=== PATIENT | female | born 1965 | race Caucasian/White ===

== ENCOUNTER 2018-10-31 23:36 | Emergency (ER) | payer BC ==
[~2018-10-31] VITALS: Ht 165.1 cm; Wt 104.5 kg
[2018-11-01] MEDS ORDERED: MICROZIDE12.5 MG PO (00:46)
[2018-11-01] MEDS ORDERED: MELOXICAM7.5 MG PO (00:47)
[2018-11-01] MEDS ORDERED: PX OMEPRAZOLE20 MG PO (00:48)
[2018-11-01] MEDS ORDERED: CITALOPRAM20 MG PO (00:49)
[2018-11-01] MEDS ORDERED: CLONAZEPAM1 MG PO (00:49)
[2018-11-01] MEDS ORDERED: KEFLEX500 M1 PO (01:05)
[2018-11-01] MEDS ORDERED: TYLENOL # 31 TA1 PO (01:05)
[2018-11-01 02:12] VITALS: BP 132/65
== END 2018-11-01 02:02 | disposition home or self-care (01) | DRG 563 ==
LOC: ED 23:36 → EDBD 23:47 → ED 11-01 02:02
PROC: 0HQHXZZ Repair Right Upper Leg Skin, External Approach (ICD-10-PCS; principal; 2018-11-01)
DX: S92.424A Nondisplaced fracture of distal phalanx of right great toe, initial encounter for closed fracture (principal); S71.111A Laceration without foreign body, right thigh, initial encounter; W01.119A Fall on same level from slipping, tripping and stumbling with subsequent striking against unspecified sharp object, initial encounter; Y93.01 Activity, walking, marching and hiking; Y92.009 Unspecified place in unspecified non-institutional (private) residence as the place of occurrence of the external cause

== ENCOUNTER 2018-11-05 21:04 | Emergency (ER) | payer BC ==
[~2018-11-05] VITALS: Ht 165.1 cm; Wt 110.0 kg
[~2018-11-05 21:04] MED LIST: CITALOPRAM20 MG PO; CLONAZEPAM1 MG PO; KEFLEX500 M1 PO; MELOXICAM7.5 MG PO; MICROZIDE12.5 MG PO; PX OMEPRAZOLE20 MG PO; TYLENOL # 31 TA1 PO
[2018-11-05 21:42] LABS: HEMATOCRIT 34.6 % (37.0-47.0); HEMOGLOBIN 11.4 g/dl (12.0-16.0); IMMATURE GRANULOCYTES 0.3 % (0.0-5.0); MEAN CELL VOLUME 86.7 fL CALC (80.0-100.0); MEAN CORPUSCULAR HGB 28.6 pG CALC (26.0-32.0); MEAN CORPUSCULAR HGB CONC 32.9 g/L CALC (32.0-36.0); NEUT# 9.64 thou/uL (2.00-7.15); RED BLOOD COUNT 3.99 mill/uL (4.20-5.60); RED CELL DISTRI WIDTH 14.1 % (11.5-15.5)
[2018-11-05 21:59] LABS: ALBUMIN 3.6 g/dL (3.2-5.0); BILIRUBIN, TOTAL 0.9 mg/dL (0.0-1.4); CREATININE 1.2 mg/dL (0.5-1.0); POTASSIUM 3.4 mmol/l (3.5-5.1); TOTAL PROTEIN 6.4 g/dL (6.3-8.2)
[2018-11-05] MEDS ORDERED: AMOX/K CLAV875 M1 PO (22:17)
[2018-11-05] MEDS ORDERED: NAPROSYN500 MG PO (22:17)
[2018-11-05] MEDS ORDERED: LORTAB 1010 MG PO (22:22)
[2018-11-05 22:38] VITALS: BP 101/65
== END 2018-11-05 22:38 | disposition home or self-care (01) | DRG 554 ==
LOC: ED 21:04
PROVIDERS: Emergency Medicine
DX: M17.12 Unilateral primary osteoarthritis, left knee (principal); L03.115 Cellulitis of right lower limb; S71.111A Laceration without foreign body, right thigh, initial encounter; I10 Essential (primary) hypertension; W19.XXXA Unspecified fall, initial encounter

== ENCOUNTER 2018-11-10 21:19 | Emergency (ER) | payer BC ==
[~2018-11-10] VITALS: Ht 165.1 cm; Wt 109.1 kg
[~2018-11-10 21:19] MED LIST changes: +AMOX/K CLAV875 M1 PO; +LORTAB 1010 MG PO; +NAPROSYN500 MG PO
[2018-11-10 23:58] LABS: HEMATOCRIT 36.7 % (37.0-47.0); HEMOGLOBIN 11.9 g/dl (12.0-16.0); IMMATURE GRANULOCYTES 3.5 % (0.0-5.0); MEAN CELL VOLUME 85.7 fL CALC (80.0-100.0); MEAN CORPUSCULAR HGB 27.8 pG CALC (26.0-32.0); MEAN CORPUSCULAR HGB CONC 32.4 g/L CALC (32.0-36.0); NEUT# 3.07 thou/uL (2.00-7.15); RED BLOOD COUNT 4.28 mill/uL (4.20-5.60); RED CELL DISTRI WIDTH 14.4 % (11.5-15.5)
[2018-11-11 00:10] LABS: ALBUMIN 3.3 g/dL (3.2-5.0); ALKALINE PHOSPHATASE 78 u/l (38-126); ANION GAP 12 (6-22 (CALC)); BILIRUBIN, TOTAL 1.4 mg/dL (0.0-1.4); BUN 18 mg/dL (7-17); BUN/CREATININE RATIO 18 (12-20 (CALC)); CARBON DIOXIDE 29 mmol/l (22-30); CHLORIDE 101 mmol/l (95-108); GFR 58 ML/MIN (>=60 (CALC)); GFR FOR AFR.AMER. > 60 ML/MIN (>=60 (CALC)); SGOT/AST 24 u/l (14-36); SODIUM 140 mmol/l (137-146); TOTAL PROTEIN 6.3 g/dL (6.3-8.2)
[2018-11-11] MEDS ORDERED: BACTRIM DS1 TAB PO (02:58)
[2018-11-11] MEDS ORDERED: IBUPROFEN600 MG PO (02:59)
[2018-11-11 03:03] VITALS: BP 114/62
== END 2018-11-11 03:14 | disposition home or self-care (01) | DRG 603 ==
LOC: ED 21:19
PROVIDERS: Emergency Medicine
DX: L03.115 Cellulitis of right lower limb (principal); S71.101A Unspecified open wound, right thigh, initial encounter; X58.XXXA Exposure to other specified factors, initial encounter
CPT/HCPCS: Q9967

== ENCOUNTER 2018-11-23 10:21 | Day surgery (SDC) | payer BC ==
[~2018-11-23 10:21] MED LIST changes: +B121000 MCG PO; +BACTRIM DS1 TAB PO; +CELEXA20 M1 PO; +CLINDAMYCIN300 M1 PO; +D32000 UNI1 PO; +ESCITALOPRAM OX20 MG PO; +IBUPROFEN600 MG PO; +L-THYROXINE PO; +MULTI VIT PO; +ROCEPHIN 500 M500 MG IJ; +TRAMADOL HCL50 MG PO; +XANAX0.5 MG PO; +ZOLPIDEM ER12.5 MG PO
[2018-11-23 13:55] VITALS: BP 122/66
== END 2018-11-23 13:50 | disposition home or self-care (01) | DRG 581 ==
LOC: ORM 10:21 → AMBSURG 12:00 → ORM 12:00 → PO 12:00 → ORM 13:50
PROVIDERS: ATTEND Surgery
PROC: 0J9L0ZZ Drainage of Right Upper Leg Subcutaneous Tissue and Fascia, Open Approach (ICD-10-PCS; principal; 2018-11-23)
DX: L02.415 Cutaneous abscess of right lower limb (principal); S70.11XA Contusion of right thigh, initial encounter; W19.XXXA Unspecified fall, initial encounter
CPT/HCPCS: J0131

== ENCOUNTER 2019-01-09 15:01 | Inpatient (IN) | payer BC ==
[~2019-01-09] VITALS: Ht 165.1 cm; Wt 106.1 kg
[2019-01-14] VITALS (25 sets, daily range): BP systolic 81–140; BP diastolic 44–87
--- NOTE | 2019-01-14 14:05 | NUR ---
PT WAS ITCHING WHILE REPORT WAS BEING GIVEN. PT STATED" THE SOAP THEY HAD ME USE DRYS OUT MY SKIN".
--- NOTE | 2019-01-14 14:06 | NUR ---
PT ARRIVED TO THE UNIT VIA BED
--- NOTE | 2019-01-14 14:21 | NUR ---
PT ARRIVED TO FLOOR VIA BED @ 1400 ACCOMPANIED BY MER BROWNING. PT. ALERT ADN ORIENTED. DENIES PAIN. REPORTING OF CONCERNS ENCOURAGED. PAIN MEDICATIONS AND RETURN OF SENSATION TO LLE REVIEWED W/ PT. PLAN OF CARE DISCUSSED. FALL PRECAUTIONS REINFORCED. CALL LIGHT REVIEWED AND IN RECH. FUNES CATHETER IN PLACE, DRAINING CLEAR YELLOW URINE. #20 LH, INFUSING LR @100 ML/HR PER ORDER. PT TOLERATING CLEAR LIQUIDS AT THIS TIME. DENIES NAUSEA. INDICATION ADN USE OF I.S. REVIEWED. 2500ML INCENTIVE VOLUME ACHIEVED, GOAL OF 3000ML SET. SCD TO RLE. DONALD WRAP DRSG TO LEFT KNEE INCISION, CDI. NO DRAINAGE NOTED. LAST BM THIS AM. PT STATES UNDERSTANDING OF INFORAMTION. AT BEDSIDE.
--- NOTE | 2019-01-14 16:34 | NUR ---
PT C/O ITCHING INFORMED DR. TELLO/ WANTS TO GIVE PT LOTION 1ST THEN IF BP IS STABLE THEN REYNA
--- NOTE | 2019-01-14 16:41 | NUR ---
PATIENT SEEN FOR EVAL. INITIATED EXERCISES AND SITTING ACTIVIIES. EX DONE FOR ANKLE PUMPS, GLUT AND QUAT SETS, HIP ROLLS, HEEL SLIDES, LAQ'S. PATIENT APPEARED TO TOLERATE TREATMENT WELL.
--- NOTE | 2019-01-14 19:05 | NUR ---
UPON GIVING REPORT TO SACHA DEL ANGEL. ENTERING THE ROOM PT WAS SNORING AND NOT WAKING UP EVEN WITH TACTILE STIMULI. CHECKED O2 SAT WAS 57 ON 2 LITERS WITH NC, CONTINUED WITH TACTILE STIMULI. PT HAD "BUBBLES COMING OUT OF HER MOUTH, " WIPED HER MOUTH AND STILL NO RESPONSE FROM THE PT. AT 1915 CALLED RAPID RESPONSE TO COME AND CHECK ON PT.
--- NOTE | 2019-01-14 19:17 | NUR ---
RAPID RESPONSE CAME TO THE ROOM :P MERVIN RN , Cedric OLEA RN, AND Oscar FIGUEROA RT, AND P/. TOSHIA NON RESPONSIVE BP IS 131/62,93 PERCOCET WAS GIVEN AT 1553. PINPOINT PUPILS,
--- NOTE | 2019-01-14 19:22 | NUR ---
HR WAS 104 TEMP WAS 94 IN BOTH EARS, SA O2 WS 48 ON 2 LITERS , DIAPHORETIC INCREASED O2 TO 15 LITERS , ACCU CHECK WAS 258 AT 1918. AT 192 BP WAS 121/56, 79% 102 CONTINUES TO BE UNRESPONSIVE SAO2 IS 80%
--- NOTE | 2019-01-14 19:27 | NUR ---
NARCAN WAS GIVEN 0.4MG IV PT HAD ATIVAN
--- NOTE | 2019-01-14 19:30 | NUR ---
STROKE ALERT WAS CALLED AT THIS TIME.
--- NOTE | 2019-01-14 19:33 | NUR ---
ABG WAS DRAWN X2 AND THEN AT 1935 PT TRANSPORTED TO HAVE A CT SCAN WITH VENTI MASK AT 15LITERS DOA COMPLETED ON URINE. WITH FUNES
--- NOTE | 2019-01-14 19:35 | NUR ---
URINE FOR DOA OBTAINED FROM FUNES TUBING AND SENT TO LAB.
--- NOTE | 2019-01-14 19:45 | NUR ---
PT REMAINED IN CT SCAN, WANTING PT TO GO TO ED FOR INTUBATION AT 1950 PT TRANSPORTED TO ED FOR THE INTUBATION. IN ROOM 11
--- NOTE | 2019-01-14 19:50 | NUR ---
ARRIVES IN ER ROOM 11.
--- NOTE | 2019-01-14 19:52 | NUR ---
INTUBATED BY DR. NOLAN WITH OUT DIFFICULTY W/ #7.5 ETT, 25 CMS AT LIP. SECURED BY David DONALD.
--- NOTE | 2019-01-14 19:53 | NUR ---
20 G IV INITIATED IN RT. AC BY Twyla RODRIGUEZ RN X 1 ATTEMPT.
--- NOTE | 2019-01-14 19:57 | NUR ---
SA02 AT 59% ON VENTIMASK. CLEAR ORAL SECRETIONS. STILL UNRESPONSIVE.
--- NOTE | 2019-01-14 19:57 | NUR ---
SA02 REMAINS LOW AT 59%. VENTILATOR SETTINGS PER R.T. WHO EMAINS AT BEDSIDE. METALLURGICAL INSPECTOR CONSULT
--- NOTE | 2019-01-14 20:00 | NUR ---
IWONA WEST AT BEDSIDE. NO FURTHER INTERVENTIONS RECOMMENDED AT THIS TIME.
[2019-01-14 20:02] LABS: GFR > 60 ML/MIN (>=60 (CALC)); GFR FOR AFR.AMER. > 60 ML/MIN (>=60 (CALC))
--- NOTE | 2019-01-14 20:03 | NUR ---
PORTABL CXR COMPLETED.
--- NOTE | 2019-01-14 20:08 | NUR ---
VENTILATOR APPLIED BY David Lua WITH SETTINGS DICTATED BY LAST ABG RESULTS
--- NOTE | 2019-01-14 20:10 | NUR ---
LABS OBTAINED BY Twyla RODRIGUEZ USING BUTTERFLY TO RT. HAND. AND SENT TO LAB.
--- NOTE | 2019-01-14 20:17 | NUR ---
PORTABLE CXR COMPLETED
--- NOTE | 2019-01-14 20:19 | NUR ---
EKG COMPLETED BY ED STAFF
[2019-01-14 20:20] LABS: BARBITURATES NEGATIVE (NEGATIVE); COCAINE NEGATIVE (NEGATIVE); METHADONE NEGATIVE (NEGATIVE); OXCYCODONE POSITIVE (NEGATIVE); TETRAHYDROCANNABIONOL NEGATIVE (NEGATIVE); TRICYLIC ANTIDEPRESSANTS NEGATIVE (NEGATIVE)
--- NOTE | 2019-01-14 20:20 | NUR ---
ISIS INTERIANO APPLIED AT MAXIMUM HEAT.
--- NOTE | 2019-01-14 20:28 | NUR ---
CALL PLACED TO DR. GOLDBERG BY DR. NOLAN AND REPORT GIVEN. NO FURTHER INDICATION FOR STROKE ALERT, PATIENT TO BE TRANSFERRED TO ICU FROM [facility].
[2019-01-14 20:32] LABS: HEMATOCRIT 39.8 % (37.0-47.0); HEMOGLOBIN 12.1 g/dl (12.0-16.0); MEAN CELL VOLUME 89.4 fL CALC (80.0-100.0); MEAN CORPUSCULAR HGB 27.2 pG CALC (26.0-32.0); MEAN CORPUSCULAR HGB CONC 30.4 g/L CALC (32.0-36.0); NEUT# 15.05 thou/uL (2.00-7.15); RED BLOOD COUNT 4.45 mill/uL (4.20-5.60); RED CELL DISTRI WIDTH 14.2 % (11.5-15.5)
--- NOTE | 2019-01-14 20:40 | NUR ---
OVERHEAD PAGE CALLED FOR 273.PT WAS NOT RESPONDING TO TOUCH OR CALL. AFTER BLOOD SUGAR RESULT, ABG DRAWN, ANALYSED AND THEN DR NOLAN WAS CALLED FOR THE RESULT. MD DECIDED TO INTUBATE THE PATIENT. WAS INTUBATED WITH A 7.5 ETT AT 24 CM OF THE LIPS. TUBE PLACEMENT VERIFIED BY CO2 DETECTOR, LISTENING OF BREATH SOUND ANT THEN X-RAY. AFTER X-RAY MD ORDERED TO GO 2CM DEEPER. WILL CONTINUE TO MONITOR.
[2019-01-14 20:44] LABS: ALKALINE PHOSPHATASE 75 u/l (38-126); ANION GAP 14 (6-22 (CALC)); BUN 13 mg/dL (7-17); BUN/CREATININE RATIO 15 (12-20 (CALC)); CARBON DIOXIDE 28 mmol/l (22-30); CHLORIDE 100 mmol/l (95-108); CREATININE 0.9 mg/dL (0.5-1.0); GFR > 60 ML/MIN (>=60 (CALC)); GFR FOR AFR.AMER. > 60 ML/MIN (>=60 (CALC)); POTASSIUM 4.1 mmol/l (3.5-5.1); SGOT/AST 39 u/l (14-36); SODIUM 138 mmol/l (137-146); TOTAL PROTEIN 7.4 g/dL (6.3-8.2)
--- NOTE | 2019-01-14 20:45 | NUR ---
PER ORDER DR. NOLAN, ETT ADJUSTED TO 26 CMS TIP-LIP BY David Lua
[2019-01-14 20:49] LABS: ALBUMIN 4.1 g/dL (3.2-5.0); BILIRUBIN, TOTAL 0.2 mg/dL (0.0-1.4)
--- NOTE | 2019-01-14 20:50 | NUR ---
REPORT TO Adrienne TUCKER RN, BY Jerome HELLER LPN.
--- NOTE | 2019-01-14 20:55 | NUR ---
ABG'S BY David LuaPATIENT AWAKE AND OPENING EYES. RESPONDING TO VERBAL COMMANDS. ORIENTED TO CURRENT SURROUNDINGS AND SITUATION, PATIENT INDICATED UNDERSTANDING. NOT ATTEMPTING TO PULL AT LINES OR TUBES. REASSURED FREQUENTLY AND POSITIVE REINFORCEMENT GIVEN. MONITORED CLOSELY.
[2019-01-14 20:56] LABS: MYOGLOBIN 119 ng/mL (0 - 62)
--- NOTE | 2019-01-14 21:00 | NUR ---
TRANSFERRED TO ICU VIA BED WITH VENTILATOR IN PLACE BY Michelle GRACE RN, Jerome HELLER LPN, Jerome BREWER CNA, AND Park Lua
--- NOTE | 2019-01-14 21:12 | NUR ---
ARRIVES VIA STRETCHER FROM [facility] STAFF. INTUBATED. BLOOD NOTED TO HEAD OF BED, RESPIRATORY STATES THAT WAS FROM THE INTUBATION. LARGE TUBE LOPES NOTED ON PATIENT THAT DOES NOT ALLOW FOR VISUALIZATION OF THE OROPHARYNX TO ASSESS FOR LOCATION THAT BLEEDING IS FROM.
--- NOTE | 2019-01-14 21:15 | NUR ---
PT. ARRIVES AND IS AWAKE, ALERT. ABLE TO MAKE NEEDS KNOWN BY WRITING HER NEEDS. ON A PAD OF PAPER, PATIENT WRITES "PAIN". WILL MEDICATE ORDERED FOR PAIN. PROPOFOL DRIP INITIATED AT THIS TIME AT 5 MCG. ARRIVAL BP IS 140/77, HR 104.
--- NOTE | 2019-01-14 21:35 | NUR ---
[facility] CLINICAL DIRECTOR CALLED FOR ANCEF, AWAITING MED.
--- NOTE | 2019-01-14 21:55 | NUR ---
ANCEF INITIATED AT THIS TIME. PT. MORE RESTFUL ON THE VENT WITH PROPOFOL DRIP RUNNING AT 20 MCG AT THIS TIME. WILL CONTINUE TO MONITOR FOR SEDATION AND BP.
--- NOTE | 2019-01-14 22:36 | NUR ---
RT AT BEDSIDE TO PERFORM ABG AND CHANGE OUT TUBE LOPES.
--- NOTE | 2019-01-14 22:41 | NUR ---
PROPOFOL DRIP INCREASED TO 25 MCG AT THIS TIME PT. WITH FACIAL GRIMMACE. WILL CONTINUE TO MONITOR AND TITRATE NEEDED.
--- NOTE | 2019-01-14 23:00 | NUR ---
PROPOFOL DRIP INCREASED TO 30 MCG AT THIS TIME. PT. REMAINS EASILY AROUSABLE WITH MINIMAL STIMULATION. BP STABLE. WILL CONTINUE TO CLOSELY MONITOR.
--- NOTE | 2019-01-14 23:15 | NUR ---
PROPOFOL DRIP INCREASED TO 35 MCG. ATTEMPTING TO PROVIDE ORAL CARE AND SUCTIONING AND PATIENT IS UNCOOPERATIVE WITH ORAL CARE. WILL CONTINUE TO ASSESS.
--- NOTE | 2019-01-14 23:30 | NUR ---
PROPOFOL DRIP INCREASED TO 40 MCG AT THIS TIME. REMAINS UNCOMFORTABLE ON THE VENT. WILL CONTINUE TO MONITOR.
--- NOTE | 2019-01-14 23:40 | NUR ---
PROPOFOL DRIP INCREASED TO 45 MCG AT THIS TIME. NG TUBE PLACED TO LIT. PLACEMENT CONFIRMED BY AUSCULTATION AND POSITIVE GASTRIC CONTENT RETURN. WILL CONTINUE TO ASSESS FOR SATISFACTORY SEDATION.
[2019-01-15] VITALS (23 sets, daily range): BP systolic 94–155; BP diastolic 44–78
--- NOTE | 2019-01-15 00:45 | NUR ---
PT. RESTING IN BED WITH EYES CLSOED IN NO DISTRESS. REMAINS RESTFUL ON THE VENT. ORAL CARE AND SUCTIONING PERFORMED AT THIS TIME. TOLERATED WELL WITH APPEARANCE OF MILD DISCOMFORT.
--- NOTE | 2019-01-15 01:45 | NUR ---
PT. HAD PARTIAL DENTURE THAT WAS NOTED MOVING IN THE MOUTH. PARTIAL WAS REMOVED AT THIS TIME. PROPOFOL DRIP INCREASED TO 55 MCG AT THIS TIME PT. AGGITATED AND ATTEMPTING TO PULL AT TUBE.
--- NOTE | 2019-01-15 03:24 | NUR ---
ANCEF INFUSED. NO REACTIONS NOTED. REMAINS STABLE ON THE VENT. CALL LIGHT REMAINS WITHIN REACH. WILL CONTIUE TO MONITOR.
--- NOTE | 2019-01-15 04:05 | NUR ---
PT. REMAINS AFEBRILE. ORAL CARE AND SUCTIONING PROVIDED AT THIS TIME. PT. TOLERATED WELL. SKIN WARM AND DRY. STABLE ON THE VENT. ICE PACK REAPPLIED TO LT. KNEE.
[2019-01-15 05:25] LABS: HEMOGLOBIN 10.7 g/dl (12.0-16.0); IMMATURE GRANULOCYTES 0.6 % (0.0-5.0); MEAN CELL VOLUME 84.2 fL CALC (80.0-100.0); MEAN CORPUSCULAR HGB 27.8 pG CALC (26.0-32.0); NEUT# 11.78 thou/uL (2.00-7.15); RED BLOOD COUNT 3.85 mill/uL (4.20-5.60); RED CELL DISTRI WIDTH 13.6 % (11.5-15.5)
[2019-01-15 05:32] LABS: HEMATOCRIT 32.4 % (37.0-47.0)
--- NOTE | 2019-01-15 05:35 | NUR ---
ORAL CARE AND SUCTIONING PERFORMED. PT. REPOSITIONED TO LT. SIDE AT THIS TIME. LINENS CHANGED. PT'S DENTURES PLACED IN DENTURE CUP AT BEDSIDE. REPOSITIONED AND LT. LEG ELEVATED. CALL LIGHT REMAINS IN PLACE. PATIENT REMAINS ON PROPOFOL AT 55 MCG. RESTING COMFORTABLY.
[2019-01-15 05:54] LABS: ALBUMIN 3.4 g/dL (3.2-5.0); ALKALINE PHOSPHATASE 66 u/l (38-126); BUN 12 mg/dL (7-17); BUN/CREATININE RATIO 18 (12-20 (CALC)); CARBON DIOXIDE 25 mmol/l (22-30); CHLORIDE 105 mmol/l (95-108); CREATININE 0.7 mg/dL (0.5-1.0); GFR > 60 ML/MIN (>=60 (CALC)); GFR FOR AFR.AMER. > 60 ML/MIN (>=60 (CALC)); MAGNESIUM 1.2 mg/dL (1.6-2.3); SGOT/AST 30 u/l (14-36); SODIUM 138 mmol/l (137-146); TOTAL PROTEIN 6.2 g/dL (6.3-8.2)
[2019-01-15 05:55] LABS: ANION GAP 12 (6-22 (CALC)); POTASSIUM 3.5 mmol/l (3.5-5.1)
--- NOTE | 2019-01-15 06:17 | NUR ---
RT AT BEDSIDE TO PERFORM ABG.
[2019-01-15 06:21] LABS: BILIRUBIN, TOTAL 0.4 mg/dL (0.0-1.4)
--- NOTE | 2019-01-15 06:25 | NUR ---
DR. NOLAN NOTIFIED OF LOW MAG AND PHOS. NO NEW ORDES RECEIVED AT THIS TIME. WILL CONINUE TO MONITOR.
--- NOTE | 2019-01-15 07:12 | NUR ---
FAXED VERBAL ORDER TO PHARMACY.
--- NOTE | 2019-01-15 07:59 | NUR ---
@BEDSIDE. GIVEN PTS BREAKFAST TRAY. IS CONCERNED THAT PT IS MISSING HER BLACK CANE, [facility] NOTIFIED.
--- NOTE | 2019-01-15 09:30 | NUR ---
PROPOFOL TITRATED TO 50MCG/KG/MIN & REPOSITIONED IN BED. PT BEGAN FULLY AWAKE. FOLLOWING DIRECTIONS. RAISING HANDS TO EQUIPMENT, HANDS HELD DOWN BY STAFF. & RT x2 @BEDSIDE.
--- NOTE | 2019-01-15 09:48 | NUR ---
PROPOFOL TITRATED DOWN TO 40MCG/KG/MIN. PT GROUGY BUT FOLLOWS DIRECTIONS. RECOGNIZED . LAUGHING AT RT.
--- NOTE | 2019-01-15 09:52 | NUR ---
DR TELLO @BEDSIDE. PROPOFOL ALINE. UPDATING . WILL EXTUBATE SOON.
--- NOTE | 2019-01-15 10:02 | NUR ---
PT EXTUBATED W/OUT DIFFICULTY. PLACED ON 3L NC.
--- NOTE | 2019-01-15 10:08 | NUR ---
GIVEN PTS BOTTLE OF XANAX FROM PHARMACY. RT GAVE PT DEEPAK.
--- NOTE | 2019-01-15 10:58 | NUR ---
PT GIVEN AM MEDS, CRUSHED, WITH APPLESAUCE. NO SWALLOWING DIFFICULTIES.
--- NOTE | 2019-01-15 11:29 | NUR ---
PT LAYING ON BACK, PER REQUEST. ANETHESIA x2 @BEDSIDE. AFTER THEY LEFT, PT STATES "SHE THINKS SHE'S GOING TO GET IN TROUBLE BC SHE TOOK 2 XANAX FROM HER BAG YESTERDAY".
--- NOTE | 2019-01-15 12:22 | NUR ---
NOTIFIED DR TELLO OF PT REQUESTING PAIN MEDICATIONS. WAITING FOR REPLY/NEW ORDERS.
--- NOTE | 2019-01-15 13:14 | NUR ---
PT MEDICATED FOR PAIN. BILL FUNES DC. PT TRANSFERED TO FOR CT WITH AUX WITH MINIMAL ASSIST.
--- NOTE | 2019-01-15 13:42 | NUR ---
PT RETURNED TO ICU 1 W/OUT INCIDENT. REPOSITIONED SELF IN BED. NO NEEDS/CONCERNS AT THIS TIME. BREATHING EVEN/UNLABORED. PT MAKING JOKES WITH STAFF. WILL CONTINUE TO MONITOR.
--- NOTE | 2019-01-15 13:56 | NUR ---
PT EDUCATED ON INCENTIVE SPIROMETER. PT DEMONSTRATING KNOWLEDGE. CELLPHONE PLUGGED INTO WALL.
--- NOTE | 2019-01-15 15:03 | NUR ---
PT ASSISTED UP TO BSC FOR URINATION. PT ABLE TO TRANSFER USING WALKER. PT GIVEN ADDITIONAL ICE PACK PER REQUEST FOR LEFT KNEE. PT BREATHING EVEN/UNLABORED, LUNGS CTA. NO ABNORMALITIES WITH SWALLOWING OR SPEAKING.
--- NOTE | 2019-01-15 16:00 | NUR ---
PT REQUESTING PAIN MEDICATION FOR LEFT KNEE. STATES ICE HELPS. PT EDUCATED ON PAIN MED OPTIONS/ MD ORDERS. PT STATES SHE WOULD LIKE TO TRY THE DILAUDID. PT REMINDED TO USE I.S.
--- NOTE | 2019-01-15 16:36 | NUR ---
DAUGHTER IN LAW @BEDSIDE WITH PT. 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
--- NOTE | 2019-01-15 17:51 | NUR ---
PT SITTING UP IN BED, EATING DINNER. DIL STILL @BEDSIDE.
--- NOTE | 2019-01-15 18:16 | NUR ---
[facility] DELIVERED FOR $5 FOR MEAL
--- NOTE | 2019-01-15 19:00 | NUR ---
BEDSIDE REPORT RECEIVED FROM MER NICK. PT RESTING IN BED WITH DAUGHTER AT BEDSIDE; ALERT AND ORIENTED. C/O 9/10 LEFT KNEE PAIN. RESPOIRATIONS EVEN AND UNLABORED ON ROOM AIR. PLAN OF CARE REVIEWED. PT ENCOURAGED TO VERBALIZE CONCERNS. STATES UNDERSTANDING. SAFETY MEASURES IN PLACE. CALL LIGHT WITHIN REACH.
--- NOTE | 2019-01-15 19:20 | NUR ---
DAUGHTER LEFT BEDSIDE AND TOOK ALL HOME MEDICATIONS HOME WITH HER. ASSISTED PT TO BSC TO VOID CLEAR YELLOW URINE. ASSESSMENT COMPLETED AT THIS TIME. INSPIRATORY WHEEZING IN BASES; PT ENCOURAGED TO USE INSENTIVE SPIROMETER; DEMONSTRATED USE. TRAMADOL GIVEN AT THIS TIME AND PT RESPOSITIONED IN BED WITH PILLOWS. ICE APPLIED TO LEFT KNEE. SCD INTACT TO RLE.
--- NOTE | 2019-01-15 19:36 | NUR ---
PT REQUETING BLANKET; TEMPERATURE OF 100.7. PT ENCOURAGED TO LEAVE BLANKET OFF AND ROOM COOLED.
--- NOTE | 2019-01-15 21:26 | NUR ---
HS MEDICATIONS ADMINISTERED. PT RESTING ON LEFT SIDE. TEMPERATURE REMAINS SLIGHTLY HIGH.
--- NOTE | 2019-01-15 22:36 | NUR ---
PT UP TO BSC FOR THE THIRD TIME THIS SHIFT. SHE REQUESTS THAT IV FLUIDS BE DISCONTINUED; STOPPED PT IS TOLERATING SOFT DIET WELL. REPOSITIONED BACK INTO BED AND PT REPORTS 10/10 LEFT KNEE PAIN AND REQUESTS PAIN MEDICATION; DIALUDID GIVEN AT THIS TIME; WILL CLOSELY MONITOR RESPONSE. TYLENOL ALSO GIVEN FOR TEMPERATURE OF 100.6. SAFETY MEASURES IN PLACE. CALL LIGHT WITHIN REACH.
--- NOTE | 2019-01-15 23:07 | NUR ---
PT FELL ASLEEP AFTER PAIN MEDICATION AND OXYGEN SATURATION DECREASED TO 88% ON ROOM AIR; OXYGEN APPLIED AT 2L VIA NC. SATURATION CURRENLTY 91% AT 2L. F/U TEMPERATURE 100.8; BLANKET REMOVED.
[2019-01-16] VITALS (10 sets, daily range): BP systolic 108–152; BP diastolic 53–83
--- NOTE | 2019-01-16 00:19 | NUR ---
TEMPERATURE DOWN TO 99.1. PT AWAKENS SPONTANEOUSLY. REPOSITIONING SELF IN BED. STATES THAT HER PAIN IS RETURNING AND SHE IS BECOMING UNCOMFORTABLE. ENCOURAGED REPOSITION AND RELAXATION. MORE ICE APPLIED TO LEFT KNEE.
--- NOTE | 2019-01-16 02:08 | NUR ---
PT UP TO BSC; VOIDING FREQUENTLY. USES CALL LIGHT FOR ASSISTANCE. IV SITES APPEAR HEALTHY AND FLUSH. SAFETY MEASURES IN PLACE.
--- NOTE | 2019-01-16 04:36 | NUR ---
NO ACUTE CHANGES IN CONDITION THROUGHOUT THE NIGHT.
--- NOTE | 2019-01-16 04:46 | NUR ---
LAB AT BEDSIDE.
[2019-01-16 05:48] LABS: HEMATOCRIT 29.3 % (37.0-47.0); HEMOGLOBIN 9.5 g/dl (12.0-16.0); IMMATURE GRANULOCYTES 0.5 % (0.0-5.0); MEAN CELL VOLUME 85.4 fL CALC (80.0-100.0); MEAN CORPUSCULAR HGB 27.7 pG CALC (26.0-32.0); MEAN CORPUSCULAR HGB CONC 32.4 g/L CALC (32.0-36.0); NEUT# 4.73 thou/uL (2.00-7.15); RED BLOOD COUNT 3.43 mill/uL (4.20-5.60); RED CELL DISTRI WIDTH 14.6 % (11.5-15.5)
[2019-01-16 06:04] LABS: ALKALINE PHOSPHATASE 56 u/l (38-126); ANION GAP 10 (6-22 (CALC)); BILIRUBIN, TOTAL 0.4 mg/dL (0.0-1.4); BUN 9 mg/dL (7-17); BUN/CREATININE RATIO 13 (12-20 (CALC)); CARBON DIOXIDE 30 mmol/l (22-30); CHLORIDE 104 mmol/l (95-108); CREATININE 0.7 mg/dL (0.5-1.0); GFR > 60 ML/MIN (>=60 (CALC)); GFR FOR AFR.AMER. > 60 ML/MIN (>=60 (CALC)); LIPASE 37 u/l (23-300); POTASSIUM 3.5 mmol/l (3.5-5.1); SGOT/AST 29 u/l (14-36); SODIUM 140 mmol/l (137-146); TOTAL PROTEIN 5.7 g/dL (6.3-8.2)
[2019-01-16 06:31] LABS: AMYLASE < 30 u/l (30-110); MAGNESIUM 1.6 mg/dL (1.6-2.3)
--- NOTE | 2019-01-16 07:19 | NUR ---
RECVD REPORT FROM MER ASKEW @START OF SHIFT. PT REQUEST PAIN MEDS FOR L KNEE & HEADACHE. STATES SHE DIDNT SLEEP WELL LAST NIGHT. REQUEST WE HOLD BREAKFAST SO SHE CAN SLEEP.
--- NOTE | 2019-01-16 08:58 | NUR ---
PT ASLEEPING, LAYING FLAT IN BED ON BACK. NO S/S OF DISTRESS. BREAKFAST HELD. WILL CONTINUE TO MONITOR.
--- NOTE | 2019-01-16 09:47 | NUR ---
GEORGIE/P.T. @BEDSIDE FOR ASSESSMENT.
--- NOTE | 2019-01-16 10:04 | NUR ---
DR TELLO @BEDSIDE ASSESSING PT.
[2019-01-16] MEDS ORDERED: TRAMADOL HCL50 MG PO (10:17)
--- NOTE | 2019-01-16 10:17 | NUR ---
RX FOR PERCOCET 10/325MG SENT TO [facility].
--- NOTE | 2019-01-16 10:48 | NUR ---
DAUGHTER IN LAW @BEDSIDE. CM ARRANGING HOME HEALTH & PHYSICAL THERAPY.
--- NOTE | 2019-01-16 11:17 | NUR ---
ENTERED PTS ROOM TO UPDATE PT/DIL ON HOME HEALTH & P.T. CONSULT, FOUND PT UP & WALKING AROUND ROOM WITH WALKER. DIL WAS ACROSS THE ROOM WATCHING. PT/DIL REMINDED TO USE CALLBELL SO STAFF IS @HER SIDE BEFORE GETTING OUT OF BED. PT/DIL VERBALIZED UNDERSTANDING.
--- NOTE | 2019-01-16 11:56 | NUR ---
KATEY LINK, @BEDSIDE WITH PT/DAUGHTER IN LAW TO DISCUSS CONSULTS.
--- NOTE | 2019-01-16 12:47 | NUR ---
PT ASSISTED UP TO BSC. DONALD WRAP REMOVED FROM KNEE. CLEAN/DRY DRESSING REMOVED. SANJAY INTACT. MODERATED BRUISING TO SURGICAL AREA.
--- NOTE | 2019-01-16 13:32 | NUR ---
PT/DIL EDUCATED ON DC INSTRUCTIONS; INCLUDING RX, RICE, F/UP CARE.
--- NOTE | 2019-01-16 13:43 | NUR ---
DIL HELPED PT GET DRESSED. NOTIFIED AUX OF NEED OF WC FOR DC.
--- NOTE | 2019-01-16 13:51 | NUR ---
PT OUT THE DOOR WITH DAUGHTER IN LAW BY WC WITH AUX IN STABLE CONDITION. PT TOOK ALL BELONGINGS HOME.
--- NOTE | 2019-01-16 15:03 | NUR ---
The patient is seen in the morning for review of her HEP. SHe has a good quad set and ROM passively is 10-70. AROM is 10-70 SHe is able to transfer to stand and perform bed mobility with SBA of 1 Am Pac score is 19 indicating she would do well to go home with HH
== END 2019-01-16 13:47 | DRG 469 ==
LOC: MS2 01-14 08:30 → ICU 01-14 08:30 → MS2 01-14 10:45 → ICU 01-14 20:57 → MS2 01-14 20:57 → ICU 01-16 13:47
PROVIDERS: Emergency Medicine; Internal Medicine Nephrology; ADMIT Orthopaedic Surgery; ATTEND Internal Medicine
PROC: 0SRD0J9 Replacement of Left Knee Joint with Synthetic Substitute, Cemented, Open Approach (ICD-10-PCS; principal; 2019-01-14)
PROC: 0BH17EZ Insertion of Endotracheal Airway into Trachea, Via Natural or Artificial Opening (ICD-10-PCS; 2019-01-14)
PROC: 5A1935Z Respiratory Ventilation, Less than 24 Consecutive Hours (ICD-10-PCS; 2019-01-14)
DX: M17.32 Unilateral post-traumatic osteoarthritis, left knee (principal); J96.02 Acute respiratory failure with hypercapnia; J96.01 Acute respiratory failure with hypoxia; E87.2 Acidosis; I10 Essential (primary) hypertension; F41.9 Anxiety disorder, unspecified; F32.9 Major depressive disorder, single episode, unspecified; E03.9 Hypothyroidism, unspecified; T42.4X1A Poisoning by benzodiazepines, accidental (unintentional), initial encounter; Y92.230 Patient room in hospital as the place of occurrence of the external cause; S82.002S Unspecified fracture of left patella, sequela; X58.XXXS Exposure to other specified factors, sequela
CPT/HCPCS: J2270; J3475; Q9967

== ENCOUNTER 2019-07-24 | Emergency (ER) | payer BC ==
[2019-07-24] MEDS ORDERED: LEVOTHYROXIN50 MCG PO (17:19)
[2019-07-24] MEDS ORDERED: TAM75CAP PO (18:30)
[2019-07-24] MEDS ORDERED: ZITHROMAX500 MG PO (18:30)
[2019-07-24] MEDS ORDERED: KEFLEX500 M1 PO (18:30)
[2019-07-24] MEDS ORDERED: VENTOLIN HFA IN (18:30)
[2019-07-24] MEDS ORDERED: TESSALON PER100 MG PO (18:30)
[2019-07-24] MEDS ORDERED: ZOFRAN4 MG/TAB PO (18:41)
== END 2019-07-24 18:49 | disposition home or self-care (01) | DRG 195 ==
DX: J10.1 Influenza due to other identified influenza virus with other respiratory manifestations (principal); I10 Essential (primary) hypertension

== ENCOUNTER 2019-07-27 | Emergency (ER) | payer BC ==
[~2019-07-27] MED LIST changes: +LEVOTHYROXIN50 MCG PO; +TAM75CAP PO; +TESSALON PER100 MG PO; +VENTOLIN HFA IN; +ZITHROMAX500 MG PO; +ZOFRAN4 MG/TAB PO
[2019-07-27 00:21] LABS: HEMATOCRIT 34.4 % (37.0-47.0); HEMOGLOBIN 11.1 g/dl (12.0-16.0); IMMATURE GRANULOCYTES 0.2 % (0.0-5.0); MEAN CELL VOLUME 85.6 fL CALC (80.0-100.0); MEAN CORPUSCULAR HGB 27.6 pG CALC (26.0-32.0); MEAN CORPUSCULAR HGB CONC 32.3 g/L CALC (32.0-36.0); NEUT# 1.79 thou/uL (2.00-7.15); RED BLOOD COUNT 4.02 mill/uL (4.20-5.60); RED CELL DISTRI WIDTH 15.2 % (11.5-15.5)
[2019-07-27 00:41] LABS: ALBUMIN 3.5 g/dL (3.2-5.0); ALKALINE PHOSPHATASE 78 u/l (38-126); ANION GAP 12 (6-22 (CALC)); BILIRUBIN, TOTAL 0.3 mg/dL (0.0-1.4); BUN 17 mg/dL (7-17); BUN/CREATININE RATIO 24 (12-20 (CALC)); CARBON DIOXIDE 25 mmol/l (22-30); CHLORIDE 106 mmol/l (95-108); CREATININE 0.7 mg/dL (0.5-1.0); ETHYL ALCOHOL 0 mg/dl (0-30); GFR > 60 ML/MIN (>=60 (CALC)); GFR FOR AFR.AMER. > 60 ML/MIN (>=60 (CALC)); MAGNESIUM 1.6 mg/dL (1.6-2.3); POTASSIUM 3.4 mmol/l (3.5-5.1); SGOT/AST 41 u/l (14-36); SODIUM 140 mmol/l (137-146); TOTAL PROTEIN 6.8 g/dL (6.3-8.2)
[2019-07-27 00:48] LABS: URINE BILIRUBIN - DIPSTICK NEGATIVE (NEGATIVE); URINE BLOOD DIPSTICK NEGATIVE (NEGATIVE); URINE COLOR YELLOW; URINE GLUCOSE - DIPSTICK NEGATIVE (NEGATIVE); URINE KETONE NEGATIVE (NEGATIVE); URINE LEUK ESTERASE NEGATIVE (NEGATIVE); URINE NITRITE - DIPSTICK NEGATIVE (Negative); URINE PROTEIN - DIPSTICK NEGATIVE (NEG-TRACE); URINE SPECIFIC GRAVITY 1.025; URINE UROBILINOGEN - DIPSTICK 0.2 E.U./dL (0.2)
[2019-07-27 00:56] LABS: COCAINE NEGATIVE (NEGATIVE); METHADONE NEGATIVE (NEGATIVE); TETRAHYDROCANNABIONOL NEGATIVE (NEGATIVE)
[2019-07-27 00:57] LABS: BARBITURATES NEGATIVE (NEGATIVE); OXCYCODONE NEGATIVE (NEGATIVE); TRICYLIC ANTIDEPRESSANTS NEGATIVE (NEGATIVE)
== END 2019-07-27 04:30 | disposition designated cancer center or children's hospital (05) | DRG 918 ==
PROVIDERS: Family Medicine
DX: T42.4X2A Poisoning by benzodiazepines, intentional self-harm, initial encounter (principal); I10 Essential (primary) hypertension; F41.9 Anxiety disorder, unspecified; F32.9 Major depressive disorder, single episode, unspecified; Z91.5 Personal history of self-harm

== ENCOUNTER 2019-11-24 | Emergency (ER) | payer BC ==
[2019-11-24 15:34] LABS: HEMOGLOBIN 12.9 g/dl (12.0-16.0); IMMATURE GRANULOCYTES 0.2 % (0.0-5.0); MEAN CELL VOLUME 85.3 fL CALC (80.0-100.0); MEAN CORPUSCULAR HGB 28.2 pG CALC (26.0-32.0); MEAN CORPUSCULAR HGB CONC 33.1 g/dL CAL (32.0-36.0); NEUT# 4.83 thou/uL (2.00-7.15); RED BLOOD COUNT 4.57 mill/uL (4.20-5.60); RED CELL DISTRI WIDTH 13.9 % (11.5-15.5); URINE BILIRUBIN - DIPSTICK NEGATIVE (NEGATIVE); URINE BLOOD DIPSTICK NEGATIVE (NEGATIVE); URINE COLOR YELLOW; URINE GLUCOSE - DIPSTICK NEGATIVE (NEGATIVE); URINE KETONE NEGATIVE (NEGATIVE); URINE LEUK ESTERASE NEGATIVE (NEGATIVE); URINE NITRITE - DIPSTICK NEGATIVE (Negative); URINE PROTEIN - DIPSTICK NEGATIVE (NEG-TRACE); URINE SPECIFIC GRAVITY >=1.030; URINE UROBILINOGEN - DIPSTICK 0.2 E.U./dL (0.2)
[2019-11-24 15:55] LABS: ALBUMIN 4.5 g/dL (3.2-5.0); ALKALINE PHOSPHATASE 65 u/l (38-126); ANION GAP 13 (6-22 (CALC)); BILIRUBIN, TOTAL 0.6 mg/dL (0.0-1.4); BUN 18 mg/dL (7-17); BUN/CREATININE RATIO 21 (12-20 (CALC)); CARBON DIOXIDE 26 mmol/l (22-30); CHLORIDE 101 mmol/l (95-108); CREATININE 0.9 mg/dL (0.5-1.0); GFR > 60 ML/MIN (>=60 (CALC)); GFR FOR AFR.AMER. > 60 ML/MIN (>=60 (CALC)); LIPASE 74 u/l (23-300); POTASSIUM 4.1 mmol/l (3.5-5.1); SGOT/AST 36 u/l (14-36); SODIUM 136 mmol/l (137-146); TOTAL PROTEIN 7.9 g/dL (6.3-8.2)
[2019-11-24] MEDS ORDERED: CITRATE OF MEGNESIA PO (15:57)
--- NOTE | 2019-11-28 09:18 | NUR ---
Notified patient of Covid results (negative). Advised patient to follow up with her PCP or return to ED with urgent needs. Advised patient to continue to practice Covid precautions. Patient verbalized understanding.
== END 2019-11-24 16:02 | disposition home or self-care (01) | DRG 153 ==
PROVIDERS: Family Medicine
DX: J02.9 Acute pharyngitis, unspecified (principal); K59.00 Constipation, unspecified; N81.10 Cystocele, unspecified; I10 Essential (primary) hypertension; J44.9 Chronic obstructive pulmonary disease, unspecified; Z20.828 Contact with and (suspected) exposure to other viral communicable diseases

== ENCOUNTER 2020-09-30 20:16 | Observation (INO) | payer BC ==
[~2020-09-30] VITALS: Ht 165.1 cm; Wt 115.0 kg
[~2020-09-30 20:16] MED LIST changes: +CITRATE OF MEGNESIA PO
--- NOTE | 2020-09-30 20:16 | NUR ---
BY EMS TO ROOM
[2020-09-30] MEDS ORDERED: ZYRTEC10 MG PO (20:36)
[2020-09-30] MEDS ORDERED: AMBIEN5 MG PO (20:37)
[2020-09-30] MEDS ORDERED: CYMBALTA20 MG PO (20:47)
[2020-09-30 20:50] LABS: HEMATOCRIT 34.7 % (37.0-47.0); HEMOGLOBIN 11.5 g/dl (12.0-16.0); IMMATURE GRANULOCYTES 0.2 % (0.0-5.0); MEAN CELL VOLUME 84.4 fL CALC (80.0-100.0); MEAN CORPUSCULAR HGB CONC 33.1 g/dL CAL (32.0-36.0); NEUT# 4.91 thou/uL (2.00-7.15); RED BLOOD COUNT 4.11 mill/uL (4.20-5.60); RED CELL DISTRI WIDTH 13.9 % (11.5-15.5)
[2020-09-30 21:07] LABS: ALBUMIN 3.9 g/dL (3.2-5.0); ALKALINE PHOSPHATASE 67 u/l (38-126); AMYLASE 44 u/l (30-110); ANION GAP 10 (6-22 (CALC)); BILIRUBIN, TOTAL 0.6 mg/dL (0.0-1.4); BUN 14 mg/dL (7-17); BUN/CREATININE RATIO 15 (12-20 (CALC)); CARBON DIOXIDE 30 mmol/l (22-30); CHLORIDE 97 mmol/l (95-108); GFR 58 ML/MIN (>=60 (CALC)); GFR FOR AFR.AMER. > 60 ML/MIN (>=60 (CALC)); LIPASE 92 u/l (23-300); SGOT/AST 28 u/l (14-36); SODIUM 134 mmol/l (137-146); TOTAL PROTEIN 7.1 g/dL (6.3-8.2)
[2020-09-30 21:09] LABS: D-DIMER 0.82 mg/L (0.19-0.60)
[2020-09-30 21:11] LABS: POTASSIUM 2.9 mmol/l (3.5-5.1)
--- NOTE | 2020-09-30 21:15 | NUR ---
RESTING COMFORTABLY. PAIN 2/10.
[2020-09-30 21:17] LABS: ACT PARTIAL THROMBO TIME 28.4 SECONDS (20.0-32.5); PROTHROMBIN TIME 10.2 SECONDS (9.0-12.5)
[2020-09-30 21:19] LABS: MYOGLOBIN 91 ng/mL (0 - 62)
--- NOTE | 2020-09-30 22:16 | NUR ---
RESTING COMFORTABLY AWAITING DISPO.
--- NOTE | 2020-09-30 23:23 | NUR ---
Admission Note Report Given to: ОЛЕГ Transported by: X Wheelchair Stretcher Transported with: X Nurse Transporter X Patent IV O2 X Rip Machine Operator Location: X ICU MS2
--- NOTE | 2020-09-30 23:28 | NUR ---
PATIENT ARRIVES VIA WHEELCHAIR, ON RA ACOOMPANIED BY ER NURSE COLE. NO ACUTE DISTRESS SHOWN. IS AWAKE, ORIENTED X4, ABLE TO WALK TO HER BED. ANSWERS ALL QUESTIONS, FOLLOWS COMMANDS, NURSE ASSESSMENT PERFORMED. DENIES CHEST PAIN, REPORTS ONLY DULL CHEST PRESSURE. LAC AND LWR IV'S INTACT, FLUSH PROPELRY, SALINE LOCKED AT THIS TIME. POC DISCUSSED. CONSENTS FOR PNA VACCINE, REPOTS SHE HAD COVID IN MAY-JUNE. FLETCHER A DRY DOCUMENTATION COORDINATOR COUGH. SKIN INTACT. REQUEST A DIET COLA AND FOOD, WILL PROVIDE. DENIES ANY RECENT STRESS, DRIVES HERSELF, IS INDEPENDENT. LIVES WITH HER AND 3 SONS. AFEBRILE. BP LOW 90'S SYSTOLIC. HAS NITRO PATCH ON RIGHT LOWER QUADRANT. SELF REPOSITIONS. CALL LIGHT WITHIN REACH.
[2020-09-30 23:41] VITALS: BP 92/51
[2020-09-30 23:55] VITALS: BP 86/53
[2020-10-01] VITALS (7 sets, daily range): BP systolic 90–122; BP diastolic 47–80
--- NOTE | 2020-10-01 01:14 | NUR ---
PATIENT ABLE TO TOLERATE LOVENOX INJECTION, IV FLUIDS INFUSING PER ORDER. WAS EDUCATED ON MEDICATIONS. WAS ABLE TO USE BSC, DENIES DIZZINESS OR SOB UPON STANDING. WAS ABLE TO EAT HER DINNER AND DRINK HER DIET COLA. DENIES CHEST PAIN. NO OTHER NEEDS AT THIS TIME. BP 90'S SYSTOLIC, WILL CONTINUE TO MONITOR.
--- NOTE | 2020-10-01 03:24 | NUR ---
MANUAL BP TAKEN OF RAHEEL DUE TO MONITOR BP READS 80'S SYSTOLIC. MANUAL BP 96/58 MMHG. PATIENT IN NO ACUTE DISTRESS, AWAKENS EASILY. NO COMPLAINTS OR NEEDS AT THIS TIME.
--- NOTE | 2020-10-01 05:17 | NUR ---
RT IN ROOM OBTAINING EKG ORDERED FOR 0500 TODAY.
--- NOTE | 2020-10-01 05:29 | NUR ---
PATIENT ASSISTED STNDBY TO BSC, NO ACUTE DISTRESS SHOWN. DENIES PAIN OR CHEST PRESSURE. NO SOB NOTED. BP TAKEN MANUALLY DUE TO BP ON MONITOR READS IN 80'S SYSTOLIC, LAYING SUPINE BP 96/60 MMHG, SITTING AFTER USING BSC 122/80 MMHG. REQUESTS DIET COS[place]ETHA, PROVIDED.
[2020-10-01 06:26] LABS: ANION GAP 9 (6-22 (CALC)); BUN 15 mg/dL (7-17); BUN/CREATININE RATIO 16 (12-20 (CALC)); CALCULATED LDLCHOLESTEROL 50 mg/dL (62-129 (CALC)); CARBON DIOXIDE 28 mmol/l (22-30); CHLORIDE 101 mmol/l (95-108); CHOLESTEROL HDL RATIO 2.4 (<4.4 (CALC)); GFR 58 ML/MIN (>=60 (CALC)); GFR FOR AFR.AMER. > 60 ML/MIN (>=60 (CALC)); HDL CHOLESTEROL 51 mg/dL (>=40); SODIUM 134 mmol/l (137-146); TOTAL CHOLESTEROL 123 mg/dl (0-199); TOTAL TRIGLYCERIDES 109 mg/dl (30-149); VLDL CHOLESTROL 22 mg/dl (2-49 (CALC))
[2020-10-01 06:42] LABS: POTASSIUM 3.6 mmol/l (3.5-5.1)
--- NOTE | 2020-10-01 07:12 | NUR ---
PT REPORT FROM GRINDING MACHINE TENDER. PT RESTING QUIETLY ON BED.
--- NOTE | 2020-10-01 09:22 | NUR ---
ADVISED PT OF IMMENENT DISCHARGE, PT TRIED CALLING FOR A RIDE, AND HER RIDE WILL BE HERE AROUND 12. ADVISED WE WILL MAKE SURE SHE IS READY AT THAT TIME
--- NOTE | 2020-10-01 12:04 | NUR ---
IV D/C'D, LUNCH GIVEN, PT IS GETTING DRESSED, SOON RIDE IS HERE, PT WILL BE DISCHARGED WITH INST.
--- NOTE | 2020-10-01 12:40 | NUR ---
PT WHEELED DOWN TO ER ENTRANCE FOR PICKUP FROM . ALERT/ORIENTED X3.
== END 2020-10-01 12:40 | disposition home or self-care (01) | DRG 313 ==
LOC: ED 20:16 → ED-I 22:18 → ED 22:25 → ICU 22:26
PROVIDERS: Family Medicine; ADMIT Internal Medicine; ATTEND Internal Medicine
DX: R07.9 Chest pain, unspecified (principal); Z68.41 Body mass index [BMI] 40.0-44.9, adult; I10 Essential (primary) hypertension; F32.9 Major depressive disorder, single episode, unspecified; K21.9 Gastro-esophageal reflux disease without esophagitis; F41.0 Panic disorder [episodic paroxysmal anxiety]; E66.9 Obesity, unspecified; Z82.49 Family history of ischemic heart disease and other diseases of the circulatory system; Z86.16 Personal history of COVID-19; Z20.822 Contact with and (suspected) exposure to COVID-19
CPT/HCPCS: J1650; Q9967

== ENCOUNTER 2021-09-29 07:01 | Day surgery (SDC) | payer MEDICARE ==
[~2021-09-29] VITALS: Ht 165.1 cm; Wt 114.3 kg
[~2021-09-29 07:01] MED LIST changes: +AMBIEN5 MG PO; +CYMBALTA20 MG PO; +ZYRTEC10 MG PO
[2021-09-29 09:13] VITALS: BP 120/70
== END 2021-09-30 09:10 | disposition home or self-care (01) ==
LOC: ORM 07:01
PROVIDERS: ATTEND Physical Medicine & Rehabilitation
DX: M25.512 Pain in left shoulder (principal)
CPT/HCPCS: Q9967

== ENCOUNTER 2021-11-17 06:58 | Day surgery (SDC) | payer MEDICARE, MEDICAID ==
[~2021-11-17] VITALS: Ht 165.1 cm; Wt 113.4 kg
[2021-11-17 10:03] VITALS: BP 125/75
== END 2021-11-17 09:25 | disposition home or self-care (01) ==
LOC: ORM 06:58
PROVIDERS: ATTEND Physical Medicine & Rehabilitation Pain Medicine
DX: M47.816 Spondylosis without myelopathy or radiculopathy, lumbar region (principal); G89.4 Chronic pain syndrome; M75.50 Bursitis of unspecified shoulder

== ENCOUNTER 2021-12-15 08:27 | Day surgery (SDC) | payer MEDICARE, MEDICAID ==
[~2021-12-15] VITALS: Ht 165.1 cm; Wt 116.1 kg
[2021-12-15 10:35] VITALS: BP 129/64
== END 2021-12-15 10:26 | disposition home or self-care (01) ==
LOC: ORM 08:27
PROVIDERS: ATTEND Physical Medicine & Rehabilitation
DX: M47.816 Spondylosis without myelopathy or radiculopathy, lumbar region (principal); G89.4 Chronic pain syndrome; M75.50 Bursitis of unspecified shoulder

== ENCOUNTER 2022-01-03 11:12 | Observation (INO) | payer MEDICARE, MEDICAID ==
[2022-01-03] VITALS (9 sets, daily range): BP systolic 87–128; BP diastolic 45–77
[~2022-01-03] VITALS: Ht 165.1 cm; Wt 123.0 kg
[~2022-01-03 11:12] MED LIST changes: +AMBIEN10 MG PO; -AMBIEN5 MG PO; -CYMBALTA20 MG PO; +CYMBALTA60 MG PO; -LEVOTHYROXIN50 MCG PO; +LEVOTHYROXIN75 MC1 PO
[2022-01-03 12:16] LABS: HEMATOCRIT 39.8 % (37.0-47.0); IMMATURE GRANULOCYTES 0.2 % (0.0-5.0); MEAN CELL VOLUME 88.4 fL CALC (80.0-100.0); MEAN CORPUSCULAR HGB 28.9 pG CALC (26.0-32.0); MEAN CORPUSCULAR HGB CONC 32.7 g/dL CAL (32.0-36.0); NEUT# 10.38 thou/uL (2.00-7.15); RED BLOOD COUNT 4.5 mill/uL (4.20-5.60); RED CELL DISTRI WIDTH 14.3 % (11.5-15.5)
[2022-01-03 12:17] LABS: URINE BILIRUBIN - DIPSTICK NEGATIVE (NEGATIVE); URINE BLOOD DIPSTICK NEGATIVE (NEGATIVE); URINE COLOR YELLOW; URINE GLUCOSE - DIPSTICK NEGATIVE (NEGATIVE); URINE KETONE NEGATIVE (NEGATIVE); URINE LEUK ESTERASE NEGATIVE (NEGATIVE); URINE PH 5.5 (4.5-8.0); URINE PROTEIN - DIPSTICK NEGATIVE (NEG-TRACE); URINE UROBILINOGEN - DIPSTICK 0.2 E.U./dL (0.2)
[2022-01-03 12:18] LABS: URINE NITRITE - DIPSTICK NEGATIVE (Negative)
[2022-01-03 12:39] LABS: ALBUMIN 4.3 g/dL (3.2-5.0); ALKALINE PHOSPHATASE 67 u/l (38-126); ANION GAP 13 (6-22 (CALC)); BILIRUBIN, TOTAL 0.6 mg/dL (0.0-1.4); BUN 16 mg/dL (7-17); BUN/CREATININE RATIO 18 (12-20 (CALC)); CARBON DIOXIDE 26 mmol/l (22-30); CHLORIDE 106 mmol/l (95-108); CREATININE 0.9 mg/dL (0.5-1.0); GFR FOR AFR.AMER. > 60 ML/MIN (>=60 (CALC)); GFR OTHER RACES > 60 ML/MIN (>=60 (CALC)); POTASSIUM 4.5 mmol/l (3.5-5.1); SGOT/AST 73 u/l (14-36); SODIUM 140 mmol/l (137-146)
[2022-01-03] MEDS ORDERED: CARAFATE1 GM PO (15:58)
[2022-01-03] MEDS ORDERED: ALPRAZOLAM1 MG PO (15:58)
[2022-01-03] MEDS ORDERED: SEROQUEL50 MG PO (16:00)
[2022-01-03] MEDS ORDERED: TRAZODONE100 MG PO (16:01)
[2022-01-03] MEDS ORDERED: MELOXICAM15 MG PO (16:05)
[2022-01-04 00:41] VITALS: BP 96/61
[2022-01-04 04:32] VITALS: BP 127/59
[2022-01-04 06:49] LABS: HEMATOCRIT 35.1 % (37.0-47.0); HEMOGLOBIN 11.1 g/dl (12.0-16.0); IMMATURE GRANULOCYTES 0.3 % (0.0-5.0); MEAN CORPUSCULAR HGB 28.5 pG CALC (26.0-32.0); MEAN CORPUSCULAR HGB CONC 31.6 g/dL CAL (32.0-36.0); NEUT# 10.34 thou/uL (2.00-7.15); RED BLOOD COUNT 3.9 mill/uL (4.20-5.60); RED CELL DISTRI WIDTH 14.3 % (11.5-15.5)
[2022-01-04 07:13] LABS: ANION GAP 9 (6-22 (CALC)); BUN 13 mg/dL (7-17); BUN/CREATININE RATIO 15 (12-20 (CALC)); CARBON DIOXIDE 25 mmol/l (22-30); CHLORIDE 106 mmol/l (95-108); CREATININE 0.9 mg/dL (0.5-1.0); GFR FOR AFR.AMER. > 60 ML/MIN (>=60 (CALC)); GFR OTHER RACES > 60 ML/MIN (>=60 (CALC)); MAGNESIUM 1.4 mg/dL (1.6-2.3); POTASSIUM 3.9 mmol/l (3.5-5.1); SODIUM 137 mmol/l (137-146)
[2022-01-04 08:00] VITALS: BP 103/58
[2022-01-04 08:02] VITALS: BP 103/58
[2022-01-04] MEDS ORDERED: LIPITOR40 M1 PO (11:19)
[2022-01-04 16:18] VITALS: BP 103/58
[2022-01-04 18:55] VITALS: BP 125/77
[2022-01-05 01:14] VITALS: BP 116/71
[2022-01-05 04:05] VITALS: BP 103/50
[2022-01-05 06:20] LABS: HEMATOCRIT 33.4 % (37.0-47.0); HEMOGLOBIN 10.8 g/dl (12.0-16.0); IMMATURE GRANULOCYTES 0.1 % (0.0-5.0); MEAN CELL VOLUME 89.3 fL CALC (80.0-100.0); MEAN CORPUSCULAR HGB 28.9 pG CALC (26.0-32.0); MEAN CORPUSCULAR HGB CONC 32.3 g/dL CAL (32.0-36.0); NEUT# 5.22 thou/uL (2.00-7.15); RED BLOOD COUNT 3.74 mill/uL (4.20-5.60); RED CELL DISTRI WIDTH 14.2 % (11.5-15.5)
[2022-01-05 06:55] LABS: ANION GAP 9 (6-22 (CALC)); BUN 10 mg/dL (7-17); BUN/CREATININE RATIO 11 (12-20 (CALC)); CARBON DIOXIDE 27 mmol/l (22-30); CHLORIDE 106 mmol/l (95-108); CREATININE 0.9 mg/dL (0.5-1.0); GFR FOR AFR.AMER. > 60 ML/MIN (>=60 (CALC)); GFR OTHER RACES > 60 ML/MIN (>=60 (CALC)); MAGNESIUM 1.6 mg/dL (1.6-2.3); SODIUM 138 mmol/l (137-146)
[2022-01-05 07:31] VITALS: BP 139/93
[2022-01-05 08:00] VITALS: BP 139/93
[2022-01-05 10:46] VITALS: BP 138/79
[2022-01-05] MEDS ORDERED: VIBRAMYCIN100 M2 PO (11:37)
== END 2022-01-05 12:20 | disposition home or self-care (01) ==
LOC: ED 11:12 → ED-I 14:10 → ED 14:27 → MS2 14:28
PROVIDERS: Family Medicine; Nurse Practitioner; ADMIT Internal Medicine; ATTEND Internal Medicine
DX: J18.9 Pneumonia, unspecified organism (principal); I10 Essential (primary) hypertension; E78.5 Hyperlipidemia, unspecified; R16.0 Hepatomegaly, not elsewhere classified; F41.9 Anxiety disorder, unspecified; M19.90 Unspecified osteoarthritis, unspecified site; F32.A Depression, unspecified; K21.9 Gastro-esophageal reflux disease without esophagitis; E66.01 Morbid (severe) obesity due to excess calories; Z68.42 Body mass index [BMI] 45.0-49.9, adult; Z86.16 Personal history of COVID-19; Z20.822 Contact with and (suspected) exposure to COVID-19; G47.33 Obstructive sleep apnea (adult) (pediatric)
CPT/HCPCS: J3475

== ENCOUNTER 2022-03-30 08:30 | Day surgery (SDC) | payer MEDICARE, MEDICAID ==
[~2022-03-30] VITALS: Ht 165.1 cm; Wt 116.6 kg
[~2022-03-30 08:30] MED LIST changes: +ALPRAZOLAM1 MG PO; +CARAFATE1 GM PO; +LIPITOR40 M1 PO; +MELOXICAM15 MG PO; +SEROQUEL50 MG PO; +TRAZODONE100 MG PO; +VIBRAMYCIN100 M2 PO
[2022-03-30 11:15] VITALS: BP 102/61
== END 2022-03-30 11:11 | disposition home or self-care (01) ==
LOC: ORM 08:30
PROVIDERS: ATTEND Physical Medicine & Rehabilitation
DX: M47.816 Spondylosis without myelopathy or radiculopathy, lumbar region (principal); G89.4 Chronic pain syndrome

== ENCOUNTER 2022-09-07 08:27 | Day surgery (SDC) | payer MEDICARE, MEDICAID ==
[~2022-09-07] VITALS: Ht 165.1 cm; Wt 109.3 kg
[2022-09-07] MEDS ORDERED: METFORMIN500 M2 PO (08:59)
[2022-09-07 11:41] VITALS: BP 124/81
== END 2022-09-07 10:42 | disposition home or self-care (01) ==
LOC: ORM 08:27
PROVIDERS: ATTEND Physical Medicine & Rehabilitation
DX: M47.812 Spondylosis without myelopathy or radiculopathy, cervical region (principal); G89.4 Chronic pain syndrome

== ENCOUNTER 2022-10-12 07:02 | Day surgery (SDC) | payer MEDICARE, MEDICAID ==
[~2022-10-12] VITALS: Ht 162.6 cm; Wt 110.2 kg
[~2022-10-12 07:02] MED LIST changes: +METFORMIN500 M2 PO
[2022-10-12 09:46] VITALS: BP 119/73
== END 2022-10-12 08:49 | disposition home or self-care (01) ==
LOC: ORM 07:02
PROVIDERS: ATTEND Physical Medicine & Rehabilitation Pain Medicine
DX: M47.812 Spondylosis without myelopathy or radiculopathy, cervical region (principal); G89.4 Chronic pain syndrome; M75.50 Bursitis of unspecified shoulder

== ENCOUNTER 2022-10-26 07:15 | Day surgery (SDC) | payer MEDICARE, MEDICAID ==
[~2022-10-26] VITALS: Ht 162.6 cm; Wt 109.3 kg
[2022-10-26 10:08] VITALS: BP 109/66
== END 2022-10-26 10:05 | disposition home or self-care (01) ==
LOC: ORM 07:15
PROVIDERS: ATTEND Physical Medicine & Rehabilitation Pain Medicine
DX: M47.812 Spondylosis without myelopathy or radiculopathy, cervical region (principal)

== ENCOUNTER 2022-12-28 07:31 | Day surgery (SDC) | payer MEDICARE, MEDICAID ==
[~2022-12-28] VITALS: Ht 162.6 cm; Wt 108.4 kg
[2022-12-28 12:03] VITALS: BP 105/70
== END 2022-12-28 09:34 | disposition home or self-care (01) ==
LOC: ORM 07:31
PROVIDERS: ATTEND Physical Medicine & Rehabilitation
DX: M65.4 Radial styloid tenosynovitis [de Quervain] (principal)

== ENCOUNTER 2023-02-22 07:11 | Day surgery (SDC) | payer MEDICARE, MEDICAID ==
[~2023-02-22] VITALS: Ht 165.1 cm; Wt 104.3 kg
[2023-02-22 09:35] VITALS: BP 105/65
== END 2023-02-22 09:10 | disposition home or self-care (01) ==
LOC: ORM 07:11
PROVIDERS: ATTEND Physical Medicine & Rehabilitation
DX: M47.816 Spondylosis without myelopathy or radiculopathy, lumbar region (principal); G89.4 Chronic pain syndrome

== ENCOUNTER 2023-08-25 14:06 | Emergency (ER) | payer MEDICARE, OTHER ==
[~2023-08-25] VITALS: Ht 165.1 cm; Wt 46.0 kg
[2023-08-25] VITALS (7 sets, daily range): BP systolic 95–125; BP diastolic 64–78
[2023-08-25] MEDS ORDERED: OCEAN NASAL0.65 % (16:00)
[2023-08-25] MEDS ORDERED: LEVOCETIRIZINE D5 MG PO (16:00)
[2023-08-25] MEDS ORDERED: PREDNISONE20 MG PO (16:00)
[2023-08-25] MEDS ORDERED: ALLERGY RE50 MCG/ACT (16:16)
== END 2023-08-25 16:22 | disposition home or self-care (01) ==
LOC: ED 14:06
DX: J45.901 Unspecified asthma with (acute) exacerbation (principal); F41.0 Panic disorder [episodic paroxysmal anxiety]; Z86.16 Personal history of COVID-19; Z20.822 Contact with and (suspected) exposure to COVID-19

== ENCOUNTER 2023-09-07 17:57 | Emergency (ER) | payer MEDICARE, OTHER ==
[2023-09-07] VITALS (13 sets, daily range): BP systolic 77–116; BP diastolic 42–77
[~2023-09-07] VITALS: Ht 165.1 cm; Wt 102.0 kg
[~2023-09-07 17:57] MED LIST changes: +ALLERGY RE50 MCG/ACT; +LEVOCETIRIZINE D5 MG PO; +OCEAN NASAL0.65 %; +PREDNISONE20 MG PO
[2023-09-07] MEDS ORDERED: ONDANSETRON HCl 4 MG/2 ML SDV IV ONE (18:45)
[2023-09-07] MEDS ORDERED: SODIUM CHLORIDE 0.9% 1,000 ML IV ONE ×2 (18:45→20:35)
[2023-09-07] MEDS ORDERED: KETOROLAC TROMETHAMINE 30 MG/ML SDV IV ONE (18:55)
[2023-09-07 19:12] LABS: BASO% 0.5 % (0-3); EOS% 3.7 % (0-8); HEMATOCRIT 34.8 % (37.0-47.0); HEMOGLOBIN 11.5 g/dl (12.0-16.0); IMMATURE GRANULOCYTES 0.2 % (0.0-5.0); LYMPH% 34.2 % (15-41); MEAN CELL VOLUME 86.1 fL CALC (80.0-100.0); MEAN CORPUSCULAR HGB 28.5 pG CALC (26.0-32.0); MONO% 7.7 % (2-13); NEUT# 5.33 thou/uL (2.00-7.15); NEUT% 53.7 % (42-76); RED BLOOD COUNT 4.04 mill/uL (4.20-5.60); RED CELL DISTRI WIDTH 13.6 % (11.5-15.5)
[2023-09-07 19:27] LABS: ALBUMIN 3.9 g/dL (3.2-5.0); ALKALINE PHOSPHATASE 64 u/l (38-126); ANION GAP 10 (6-22 (CALC)); BILIRUBIN, TOTAL 0.5 mg/dL (0.02-1.3); BUN 11 mg/dL (7-17); BUN/CREATININE RATIO 13 (12-20 (CALC)); CARBON DIOXIDE 30 mmol/l (22-30); CHLORIDE 94 mmol/l (95-108); CREATININE 0.8 mg/dL (0.5-1.0); GFR FOR AFR.AMER. > 60 ML/MIN (>=60 (CALC)); GFR OTHER RACES > 60 ML/MIN (>=60 (CALC)); LIPASE 61 u/l (23-300); SGOT/AST 30 u/l (14-36); SODIUM 131 mmol/l (137-146); TOTAL PROTEIN 6.4 g/dL (6.3-8.2)
[2023-09-07 19:28] LABS: POTASSIUM 2.9 mmol/l (3.5-5.1)
[2023-09-07] MEDS ORDERED: POTASSIUM CHLORIDE 20 MEQ/TAB PO ONE (20:30)
[2023-09-07] MEDS ORDERED: cefTRIAXone SODIUM 2 GM in SODIUM CHLORIDE 0.9% 100 ML IV ONE (20:35)
[2023-09-07 20:57] LABS: URINE BILIRUBIN - DIPSTICK Negative (NEGATIVE); URINE BLOOD DIPSTICK Negative (NEGATIVE); URINE COLOR Yellow; URINE GLUCOSE - DIPSTICK Negative (NEGATIVE); URINE KETONE Negative (NEGATIVE); URINE LEUK ESTERASE Negative (NEGATIVE); URINE NITRITE - DIPSTICK Negative (Negative); URINE PROTEIN - DIPSTICK Negative (NEG-TRACE); URINE UROBILINOGEN - DIPSTICK 0.2 E.U./dL (0.2)
[2023-09-07] MEDS ORDERED: POTASSIUM CHLO20 ME1 PO (22:39)
== END 2023-09-07 23:20 | disposition home or self-care (01) ==
LOC: ED 17:57
PROVIDERS: Nurse Practitioner
DX: N39.0 Urinary tract infection, site not specified (principal); Z79.84 Long term (current) use of oral hypoglycemic drugs; E66.01 Morbid (severe) obesity due to excess calories; F41.9 Anxiety disorder, unspecified; F32.A Depression, unspecified; K21.9 Gastro-esophageal reflux disease without esophagitis; Z86.16 Personal history of COVID-19; E87.6 Hypokalemia
CPT/HCPCS: Q9967

== ENCOUNTER 2024-01-21 09:41 | Emergency (ER) | payer MEDICARE ==
[~2024-01-21] VITALS: Ht 165.1 cm; Wt 102.0 kg
[2024-01-21] VITALS (14 sets, daily range): BP systolic 109–147; BP diastolic 56–86
[~2024-01-21 09:41] MED LIST changes: +POTASSIUM CHLO20 ME1 PO
[2024-01-21 10:39] LABS: BASO% 0.5 % (0-3); EOS% 2.9 % (0-8); HEMATOCRIT 32.2 % (37.0-47.0); HEMOGLOBIN 10.3 g/dl (12.0-16.0); IMMATURE GRANULOCYTES 0.2 % (0.0-5.0); LYMPH% 21.2 % (15-41); MEAN CELL VOLUME 88.2 fL CALC (80.0-100.0); MEAN CORPUSCULAR HGB 28.2 pG CALC (26.0-32.0); MONO% 7.5 % (2-13); NEUT# 6.62 thou/uL (2.00-7.15); NEUT% 67.7 % (42-76); RED BLOOD COUNT 3.65 mill/uL (4.20-5.60); RED CELL DISTRI WIDTH 13.5 % (11.5-15.5)
[2024-01-21 10:58] LABS: BILIRUBIN, TOTAL 0.6 mg/dL (0.02-1.3); CREATININE 0.7 mg/dL (0.5-1.0); TOTAL PROTEIN 5.8 g/dL (6.3-8.2)
[2024-01-21 11:01] LABS: POTASSIUM 4.1 mmol/l (3.5-5.1)
[2024-01-21] MEDS ORDERED: MORPHINE SULFATE 4 MG/ML VIAL IV ONE (11:15)
[2024-01-21] MEDS ORDERED: ONDANSETRON HCl 4 MG/2 ML SDV IV ONE (11:15)
[2024-01-21 12:33] LABS: URINE BLOOD DIPSTICK Negative (NEGATIVE); URINE GLUCOSE - DIPSTICK Negative (NEGATIVE); URINE KETONE Negative (NEGATIVE); URINE LEUK ESTERASE Negative (NEGATIVE); URINE NITRITE - DIPSTICK Negative (Negative); URINE PH 8.5 (4.5-8.0); URINE PROTEIN - DIPSTICK Negative (NEG-TRACE); URINE SPECIFIC GRAVITY 1.015
[2024-01-21 12:40] LABS: URINE COLOR Yellow
[2024-01-21] MEDS ORDERED: ZOFRAN4 MG/TAB PO (13:35)
[2024-01-21] MEDS ORDERED: HYDROCO/APAP1 TA9 PO (13:35)
== END 2024-01-21 14:06 | disposition home or self-care (01) ==
LOC: ED 09:41
PROVIDERS: Family Medicine
DX: M51.36 Other intervertebral disc degeneration, lumbar region (principal); F41.9 Anxiety disorder, unspecified; F32.A Depression, unspecified; K21.9 Gastro-esophageal reflux disease without esophagitis; Z86.16 Personal history of COVID-19; Z98.890 Other specified postprocedural states; Z20.822 Contact with and (suspected) exposure to COVID-19